=== PATIENT | male | born 1970 | race Caucasian/White ===

== ENCOUNTER 2016-11-10 17:35 | Emergency (ER) | payer BC ==
[2016-11-10 18:03] VITALS: BP 160/108
[2016-11-10] MEDS ORDERED: Lidocaine 1% with EPINEPHrine 1:100,000 20 ML MDV INJECT ONE (18:19)
--- NOTE | 2016-11-10 18:23 | EDM.PDOC ---
ED HPI GENERAL MEDICAL PROBLEM - General Chief Complaint: Laceration Stated Complaint: LT LEG LAC Time Seen by Provider: 11/10/16 18:10 Source of Information: Reports: Patient History Limitations: Reports: No Limitations - History of Present Illness INITIAL COMMENTS - FREE TEXT/NARRATIVE: Patient is a 46-year-old male who presents to the ED complaining of a laceration to the right pillai. Patient states he was moving a weightlifting machine and it fell on him. States approximately 9x45 pound plates fell on him. He was able to get up on his own accord and ambulate with no difficulties. He has increased swelling to the right anterior pillai with approximately 3 cm deep laceration. Bleeding has been controlled with direct pressure. Patient has a history of quadriceps tear requiring surgery to the affected leg. Has been no increase in pain to the knee or upper leg. Nor does the patient have any pain to the right ankle and foot. States his tetanus is up-to-date. Of note patient does take a baby aspirin daily. Onset: Today, Sudden Duration: Constant Location: Reports: Lower Extremity, Right Quality: Reports: Ache Severity: Mild Worsens with: Reports: Other (palpation) Context: Reports: Trauma Right Leg Pain Score (Numeric/FACES): 7 - Related Data Allergies Allergy/AdvReac Type Severity Reaction Status Date / Time No Known Allergies Allergy Verified 11/10/16 18:04 Home Meds: Home Meds Escitalopram Oxalate 1 tab PO DAILY 07/18/16 [History] Fish Oil/[place]-3 Fatty Acids [Fish Oil 1,000 MG] 3 cap PO DAILY 07/18/16 [ History] Gluc 2KCl/Chondr/[place] Hy/Hy Ac [Glucosamine & Chondroitin Cap] 1 cap PO DAILY [History] Lisinopril/Hydrochlorothiazide [Lisinopril-Hctz 10-12.5 mg Tab] 1 tab PO DAILY 07/18/16 [History] Omeprazole 1 tab PO DAILY 07/18/16 [History] amLODIPine Besylate [Amlodipine Besylate] 1 tab PO DAILY 07/18/16 [History] atorvaSTATin [Lipitor] 1 tab PO DAILY 07/18/16 [History] Aspirin 81 mg PO DAILY 11/10/16 [History] Cephalexin [Keflex] 500 mg PO TID #15 capsule 11/10/16 [Rx] Past Medical History HEENT History: Reports: None Cardiovascular History: Reports: High Cholesterol, Hypertension Respiratory History: Reports: Other (See Below) Other Respiratory History: left lung puncture Genitourinary History: Reports: None CREATIVE SPECIALIST History: Reports: None Neurological History: Reports: Other (See Below) Other Neuro History: cerebral hemmorrhage Psychiatric History: Reports: Anxiety Endocrine/Metabolic History: Reports: None Hematologic History: Reports: None Immunologic History: Reports: None Oncologic (Cancer) History: Reports: None Dermatologic History: Reports: None - Past Surgical History Head Surgeries/Procedures: Reports: None GI Surgical History: Reports: Appendectomy, Hernia Repair/Other, Other (See Below) Musculoskeletal Surgical History: Reports: Other (See Below) Social & Family History - Tobacco Use Smoking Status *Q: Never Smoker Second Hand Smoke Exposure: No - Caffeine Use Caffeine Use: Reports: None - Recreational Drug Use Recreational Drug Use: No ED ROS GENERAL - Review of Systems Review Of Systems: See Below Musculoskeletal: Reports: Leg Pain Skin: Reports: Bruising, Other (hematoma to right pillai) ED EXAM, SKIN/RASH Exam: See Below Exam Limited By: No Limitations General Appearance: Alert, WD/WN, No Apparent Distress Ears: Hearing Grossly Normal Nose: Normal Inspection Throat/Mouth: Normal Voice, No Airway Compromise Neck: Normal Inspection Respiratory/Chest: No Respiratory Distress, No Accessory Muscle Use Cardiovascular: Normal Peripheral Pulses, Regular Rate, Rhythm Extremities: Other (3.0 cm deep laceration to the mid right pillai. Hematoma present. No pain with palpation of the upper leg, knee, ankle or foot. Pain is isolated to hematoma/laceration site. ) Neurological: Alert, Oriented, Normal Cognition, No Motor/Sensory Deficits. No : Normal Gait (mild limp) Psychiatric: Normal Affect, Normal Mood ED SKIN PROCEDURES - Laceration/Wound Repair Right Leg Lac/wound length in cm: 3.0 Appearance: Subcutaneous Distal NVT: Neuro & Vascular Intact Anesthetic Type: Local Local Anesthesia - Lidocaine (Xylocaine): 1% With EPI Local Anesthetic Volume: 5cc Skin Prep: Saline, Sterile Drape Exploration/Debridement/Repair: Wound Explored, in a Bloodless Field, No Foreign Material Found Closed with: Sutures Suture Size: 3-0 # of Sutures: 4 (loosely tied 2nd to large hematoma present) Suture Type: Prolene, Interrupted, Simple Drain Placement: No Sterile Dressing Applied: Nurse (with joshua wrap) Tetanus Status Addressed: Yes Complications: No Course - Vital Signs Last Recorded V/S: Last Vital Signs Temp 98.7 F 11/10/16 18:01 Pulse 83 11/10/16 18:01 Resp 18 11/10/16 18:01 BP 160/108 H 11/10/16 18:01 Pulse Ox 97 11/10/16 18:01 - Orders/Labs/Meds Orders: Active Orders 24 hr Category Date Time Status Tibia Fibula Rt [CR] Stat Exams 11/10/16 18:17 Taken Meds: Medications Discontinued Medications Generic Name Dose Route Start Last Admin Trade Name Josh PRN Reason Stop Dose Admin Cephalexin 500 mg 11/10/16 19:48 11/10/16 19:54 Keflex PO 11/10/16 19:49 500 mg ONETIME ONE Administration Lidocaine HCl 20 ml 11/10/16 19:02 Xylocaine 1% INJECT 11/10/16 19:03 ONETIME ONE Lidocaine HCl Confirm 11/10/16 19:22 Xylocaine 1% Administered 11/10/16 19:23 Dose 50 ml .ROUTE .STK-MED ONE Lidocaine/Epinephrine 20 ml 11/10/16 18:19 Xylocaine 1% With Epinephrine 1:100,000 INJECT 11/10/16 18:20 ONETIME ONE - Re-Assessments/Exams Free Text/Narrative Re-Assessment/Exam: 11/10/16 18:18 3 cm laceration to the right mid pillai. Swelling present with pain upon palpation. Ordered x-ray of the right tibia. Tetanus status is up to date. Ordered lidocaine with epi. x-ray of the right tib-fib did not reveal any acute bony abnormalities. Soft tissue swelling present. Laceration was closed loosely with 4 #3.0 simple interrupted sutures with no complications. Bacitracin along with nonadherent dressing and Joshua wrap applied per nursing staff. Will discharge patient home with instructions as documented. Opted to start patient on keflex. Tried to aspirate blood to reduce swelling with no luck. Departure - Departure Time of Disposition: 19:43 Disposition: Home, Self-Care 01 Condition: good Clinical Impression: Leg laceration Qualifiers: Encounter type: initial encounter Laterality: right Qualified Code(s): S81.811A - Laceration without foreign body, right lower leg, initial encounter Hematoma of leg Qualifiers: Encounter type: initial encounter Laterality: right Qualified Code(s): S80.11XA - Contusion of right lower leg, initial encounter - Discharge Information Prescriptions: Cephalexin [Keflex] 500 mg PO TID #15 capsule Instructions: Stitches, Fadia, or Adhesive Wound Closure, [id number], Laceration Care, Adult, [id number] Referrals: Genesis Leal, DOG BARBER [Primary Care Provider] - Forms: ED Department Discharge Additional Instructions: Sutures should come out in 10 days. For swelling continues to wear Joshua wrap. Elevate when able to reduce swelling and pain. Apply ice to the affected area 6 times daily, 20 minutes in duration, do not place ice directly on the skin. Refrain from any lifting until swelling and laceration has healed. Cleanse site twice daily with soap and water, pat dry, reapply Triple Antibiotic ointment with dressing. Keep area clean. Sutures can be taken out at the [facility]. Return to ED if you develop increased redness, increased swelling, or purulent drainages. - My Orders Last 24 Hours: My Active Orders 11/10/16 18:17 Tibia Fibula Rt [CR] Stat - Assessment/Plan Last 24 Hours: My Active Orders 11/10/16 18:17 Tibia Fibula Rt [CR] Stat
[2016-11-10] MEDS ORDERED: Lidocaine 1% 20 ML MDV INJECT ONE (19:02)
[2016-11-10] MEDS ORDERED: Lidocaine 1% 50 ML MDV ONE (19:22)
[2016-11-10] MEDS ORDERED: Cephalexin 500 MG Cap PO ONE (19:48)
--- NOTE | 2016-11-12 08:03 | CR ---
Right tibia and fibula: AP and lateral views the right tibia and fibula were obtained. Soft tissue injury is identified. No opaque foreign object is seen. No fracture or other bony abnormality is identified. Impression: 1. Soft tissue injury. No additional abnormality is identified on two-view right tibia and fibula study. Diagnostic code #2
== END 2016-11-10 19:30 | disposition home or self-care (01) ==
LOC: JD.ED 17:35
DX: S81.811A Laceration without foreign body, right lower leg, initial encounter (principal); S80.11XA Contusion of right lower leg, initial encounter; I10 Essential (primary) hypertension; E78.00 Pure hypercholesterolemia, unspecified; F41.9 Anxiety disorder, unspecified; Z90.49 Acquired absence of other specified parts of digestive tract; Z98.890 Other specified postprocedural states; Z79.82 Long term (current) use of aspirin; Z79.899 Other long term (current) drug therapy; W31.9XXA Contact with unspecified machinery, initial encounter
CPT/HCPCS: 12002; 73590; 99283; A9270

== ENCOUNTER 2019-06-28 02:58 | Emergency (ER) | payer BC ==
[2019-06-28 03:08] VITALS: BP 150/104; PULSE 99
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
[2019-06-28] MEDS ORDERED: Ibuprofen 600 MG Tab PO ONE (04:31)
[2019-06-28] MEDS ORDERED: FLU Vacc QS2019-20(6MOS+)/PF 60 MCG/0.5 ML SYRINGE IM ONE (04:45)
--- NOTE | 2019-06-28 11:02 | CR ---
Pelvis and left hip: AP view of the pelvis was obtained as well as AP cone down view of the left hip. Osteophytes are noted off the left femoral head. Joint spaces within both hips are maintained. Pseudoarticulation of an enlarged transverse process to the sacrum is seen compatible with transitional segment. Calcification is noted around the inferior right pubic ramus most likely due to old injury. No acute fracture or other abnormality is appreciated. Impression: 1. Mild degenerative change. 2. Partial transitional segment at the lumbosacral junction. 3. Other findings as noted above. Nothing acute is seen. Diagnostic code #2 This report was dictated in [place] Standard Time
== END 2019-06-28 04:45 | disposition home or self-care (01) ==
LOC: JD.ED 02:58
DX: M70.62 Trochanteric bursitis, left hip (principal); I10 Essential (primary) hypertension; E78.00 Pure hypercholesterolemia, unspecified; F41.9 Anxiety disorder, unspecified; Z79.82 Long term (current) use of aspirin; Z79.899 Other long term (current) drug therapy; Z23 Encounter for immunization
CPT/HCPCS: 73501; 90471; 90686; 99283; A9270; 99282; G0008

== ENCOUNTER 2022-01-22 07:50 | Day surgery (SDC) | payer OTHER ==
[~2022-01-22 07:50] MED LIST: Lactated Ringers 1,000 ML IV SCH; Lidocaine 1%/Sod Bicarbonate in NS 8.4% 1 ML Syringe IDERM PRN; Sodium Chloride 0.9% 10 ML Syringe FLUSH PRN; Sodium Chloride 0.9% 10 ML Syringe FLUSH SCH
[2022-01-22] MEDS ORDERED: Propofol 200 MG/20 ML SDV ONE ×2 (09:32→11:10)
[2022-01-22] MEDS ORDERED: Midazolam 1 MG/ML 2 ML SDV ONE (09:32)
[2022-01-22] MEDS ORDERED: fentaNYL 100 MCG/2 ML SDV ONE (11:14)
[2022-01-22] MEDS ORDERED: Ondansetron 4 MG/2 ML SDV IVPUSH ONE (12:30)
[2022-01-22] MEDS ORDERED: Dicyclomine 10 MG Cap PO ONE (13:00)
[2022-01-22 13:27] VITALS: BP 128/78; PULSE 74
== END 2022-01-22 13:25 | disposition home or self-care (01) ==
LOC: JD.SDS 07:50
PROVIDERS: ATTEND Surgery
DX: Z12.11 Encounter for screening for malignant neoplasm of colon (principal); D12.3 Benign neoplasm of transverse colon; K57.30 Diverticulosis of large intestine without perforation or abscess without bleeding; I10 Essential (primary) hypertension; E11.9 Type 2 diabetes mellitus without complications; F32.A Depression, unspecified; E78.00 Pure hypercholesterolemia, unspecified; K21.9 Gastro-esophageal reflux disease without esophagitis; F41.9 Anxiety disorder, unspecified; Z79.82 Long term (current) use of aspirin; Z79.899 Other long term (current) drug therapy; Z98.890 Other specified postprocedural states; Z79.84 Long term (current) use of oral hypoglycemic drugs; Z79.02 Long term (current) use of antithrombotics/antiplatelets
CPT/HCPCS: 45380; 45385; A9270; J2250; J2405; J2704; J3010; J7120; 00812

== ENCOUNTER 2022-06-15 12:25 | Day surgery (SDC) | payer BC, OTHER ==
[2022-06-15] MEDS ORDERED: HYDROmorphone 0.5 MG/0.5 ML Syringe IVPUSH ONE ×3 (12:59→16:11)
[2022-06-15] MEDS ORDERED: Sodium Chloride 0.9% 1,000 ML IV STA (12:59)
[2022-06-15] MEDS ORDERED: Ondansetron 4 MG/2 ML SDV IVPUSH ONE (12:59)
[2022-06-15] MEDS: Sodium Chloride 0.9% 10 ML Syringe FLUSH PRN ×2 (13:24→14:42)
[2022-06-15] MEDS ORDERED: Iopamidol 612 MG/ML 100 ML Bottle IVPUSH ONE (14:21)
[2022-06-15] MEDS ORDERED: Iopamidol 612 MG/ML 50 ML SDV IVPUSH ONE (14:21)
[2022-06-15] MEDS ORDERED: ceFAZolin 2 GM in Sodium Chloride 0.9% 50 ML IV ONE (15:49)
[2022-06-15] MEDS ORDERED: Lactated Ringers 2,000 ML ONE (16:31)
[2022-06-15] MEDS ORDERED: Ketorolac 30 MG/ML SDV ONE (16:31)
[2022-06-15] MEDS ORDERED: Succinylcholine 200 MG/10 ML MDV ONE (16:31)
[2022-06-15] MEDS ORDERED: Propofol 200 MG/20 ML SDV ONE ×2 (16:31→16:33)
[2022-06-15] MEDS ORDERED: Rocuronium 50 MG/5 ML Vial ONE (16:31)
[2022-06-15] MEDS ORDERED: Ondansetron 4 MG/2 ML SDV ONE (16:31)
[2022-06-15] MEDS ORDERED: Midazolam 1 MG/ML 2 ML SDV ONE (16:32)
[2022-06-15] MEDS ORDERED: fentaNYL 100 MCG/2 ML SDV ONE (16:32)
[2022-06-15] MEDS ORDERED: Bupivacaine 0.5%/EPINEPHrine 1:200,000 50 ML MDV ONE (16:47)
[2022-06-15] MEDS ORDERED: Lidocaine 1% 50 ML MDV ONE (16:47)
[2022-06-15 17:07] VITALS: PULSE 79
[2022-06-15] MEDS ORDERED: Phenylephrine HCl In 0.9% NaCl 1 MG/10 ML Vial ONE (17:15)
[2022-06-15] MEDS ORDERED: ePHEDrine 50 MG/ML SDV ONE (17:24)
[2022-06-15] MEDS ORDERED: diphenhydrAMINE 50 MG/ML SDV IVPUSH PRN (17:34)
[2022-06-15] MEDS ORDERED: Metoclopramide 10 MG/2 ML SDV IV PRN (17:34)
[2022-06-15] MEDS ORDERED: HYDROmorphone 0.5 MG/0.5 ML Syringe IVPUSH PRN (17:34)
[2022-06-15] MEDS ORDERED: Midazolam 1 MG/ML 2 ML SDV IVPUSH PRN (17:34)
[2022-06-15] MEDS ORDERED: ePHEDrine 50 MG/ML SDV IVPUSH PRN (17:34)
[2022-06-15] MEDS ORDERED: fentaNYL 100 MCG/2 ML SDV IVPUSH PRN (17:34)
[2022-06-15] MEDS ORDERED: Albuterol 0.083% 2.5 MG/3 ML Neb Soln NEB PRN (17:34)
[2022-06-15] MEDS ORDERED: Sugammadex Sodium 200 MG/2 ML VIAL ONE (17:52)
[2022-06-15 20:32] VITALS: BP 143/81
== END 2022-06-15 19:36 | disposition home or self-care (01) ==
LOC: JD.ED 12:25 → JD.SDS 16:33
PROVIDERS: ATTEND Surgery
DX: K80.00 Calculus of gallbladder with acute cholecystitis without obstruction (principal); I10 Essential (primary) hypertension; E78.00 Pure hypercholesterolemia, unspecified; K21.9 Gastro-esophageal reflux disease without esophagitis; J93.9 Pneumothorax, unspecified; F41.9 Anxiety disorder, unspecified; E11.9 Type 2 diabetes mellitus without complications; F32.A Depression, unspecified; K43.9 Ventral hernia without obstruction or gangrene; Z90.49 Acquired absence of other specified parts of digestive tract; Z79.899 Other long term (current) drug therapy; Z79.82 Long term (current) use of aspirin; Z98.890 Other specified postprocedural states
CPT/HCPCS: 36415; 47562; 71045; 71260; 74177; 76705; 80053; 82947; 83690; 83735; 83880; 84484; 85025; 85379; 85610; 86140; 93005; 96361; 96365; 96375; 96376; 99285; J0330; J0690; J1170; J2001; J2250; J2405; J2704; J3010; J3490; J7030; J7120; Q9967; 00790; J1885

== ENCOUNTER 2023-02-09 01:47 | Emergency (ER) | payer BC ==
[2023-02-09] MEDS ORDERED: Ondansetron 4 MG/2 ML SDV IVPUSH ONE (02:35)
[2023-02-09] MEDS ORDERED: HYDROmorphone 1 MG/ML Syringe IVPUSH ONE ×4 (02:35→05:59)
[2023-02-09] MEDS ORDERED: Amoxicillin/Clavulanate K 875-125 MG Tab PO STA (03:54)
[2023-02-09 04:46] VITALS: BP 141/82; PULSE 92
== END 2023-02-09 06:30 | disposition home or self-care (01) ==
LOC: JD.ED 01:47
DX: S02.601A Fracture of unspecified part of body of right mandible, initial encounter for closed fracture (principal); E78.00 Pure hypercholesterolemia, unspecified; I10 Essential (primary) hypertension; K21.9 Gastro-esophageal reflux disease without esophagitis; Z79.899 Other long term (current) drug therapy; Y04.0XXA Assault by unarmed brawl or fight, initial encounter
CPT/HCPCS: 70486; 96374; 96375; 96376; 99284; J1170; J2405